=== PATIENT | male | born 2000 | race African-American/Black ===

== ENCOUNTER 2021-02-20 19:14 | Emergency (ER) | payer OTHER, MEDICAID ==
[~2021-02-20] VITALS: Ht 154.9 cm; Wt 54.4 kg
[2021-02-20 21:30] VITALS: BP 123/64
== END 2021-02-20 21:30 | disposition home or self-care (01) ==
LOC: M.ERS 19:14
DX: S63.693A Other sprain of left middle finger, initial encounter (principal); S63.8X2A Sprain of other part of left wrist and hand, initial encounter; Z88.8 Allergy status to other drugs, medicaments and biological substances; X50.9XXA Other and unspecified overexertion or strenuous movements or postures, initial encounter; Y93.67 Activity, basketball; Y92.89 Other specified places as the place of occurrence of the external cause; Y99.8 Other external cause status